=== PATIENT | female | born 1960 | race Caucasian/White ===

== ENCOUNTER 2019-01-08 18:02 | Observation (INO) ==
[2019-01-08] MEDS ORDERED: ZOFRAN INJ 4 MG VIAL IVP PRN (18:24)
[2019-01-08] MEDS ORDERED: PHENERGAN INJ 25 MG IM PRN (18:30)
[2019-01-08] MEDS ORDERED: NS 1000 ML 1,000 ML IV SCH (19:00)
[2019-01-08 20:04] LABS: BASOPHILS # (AUTO) 0.1 X10^3/uL (0.0-0.1); BASOPHILS % (AUTO) 0.8 % (0.2-1.0); EOSINOPHILS # (AUTO) 0.2 x10^3/uL (0.0-0.2); EOSINOPHILS % (AUTO) 1.6 % (0.9-2.9); HEMATOCRIT 44.6 % (36.0-47.0); LYMPHOCYTES # (AUTO) 3.6 X10^3/uL (1.3-2.9); MEAN CORPUSCULAR HEMOGLOBIN 31.1 pg (27.0-34.0); MEAN CORPUSCULAR HGB CONC 33.8 g/dL (33.0-35.0); MEAN CORPUSCULAR VOLUME 92.2 fL (80.0-100.0); MEAN PLATELET VOLUME 7.9 fL (7.4-11.0); MONOCYTES # (AUTO) 0.7 x10^3/uL (0.3-0.8); MONOCYTES % (AUTO) 6.1 % (0.0-13.0); NEUTROPHILS # (AUTO) 6.7 x10^3/uL (2.2-4.8); NEUTROPHILS % (AUTO) 59.5 % (42.0-75.0); PLATELET COUNT 294 X10^3/uL (150.0-450.0); RED BLOOD COUNT 4.83 X10^6/uL (3.5-5.4); RED CELL DISTRIBUTION WIDTH 13.4 % (11.6-16.5); WHITE BLOOD COUNT 11.3 X10^3/uL (3.6-10.0)
[2019-01-08] MEDS ORDERED: NS 1000 ML 1,000 ML IV ONE (20:11)
[2019-01-08] MEDS ORDERED: DILAUDID INJ IVP PRN (20:11)
[2019-01-08 20:14] LABS: ALANINE AMINOTRANSFERASE 34 Units/L (12-78); ALBUMIN 3.7 g/dL (3.4-5.0); ALKALINE PHOSPHATASE 87 Units/L (46-116); ASPARTATE AMINO TRANSFERASE 20 Units/L (15-37); BLOOD UREA NITROGEN 19 mg/dL (7-18); CALCIUM 9.2 mg/dL (8.5-10.1); CARBON DIOXIDE 30.2 mmol/L (21-32); CHLORIDE 105 mmol/L (98-107); CREATININE 0.87 mg/dL (0.55-1.02); SODIUM 144 mmol/L (136-145); TOTAL PROTEIN 7.5 g/dL (6.4-8.2); eGFR NON BLACK RACES > 60 (>60)
[2019-01-08] MEDS ORDERED: NS 1000 ML 1,000 ML ONE (20:14)
[2019-01-08 20:36] VITALS: BMI 25.2
[2019-01-08] MEDS: PROTONIX INJ 40 MG VIAL IVP SCH (21:18)
[2019-01-08 21:37] LABS: BILIRUBIN,URINE NEGATIVE (NEGATIVE); BLOOD/HEMOGLOBIN,URINE NEGATIVE (NEGATIVE); GLUCOSE, URINE NEGATIVE (NEGATIVE); KETONES,URINE NEGATIVE (NEGATIVE); LEUKOCYTE ESTERASE ,URINE NEGATIVE (NEGATIVE); NITRITES,URINE NEGATIVE (NEGATIVE); PROTEIN,URINE NEGATIVE (NEGATIVE); UROBILINOGEN,URINE NORMAL (NORMAL)
[2019-01-08 21:44] LABS: APPEARANCE,URINE CLEAR (CLEAR); COLOR,URINE YELLOW (YELLOW)
--- NOTE | 2019-01-08 21:54 | RAD ---
HISTORY: Abdominal pain without chest complaints Study: Single view of the chest. Comparison: None. Findings: The cardiomediastinal silhouette is normal. No focal consolidations, pleural effusions or pneumothorax. Osseous structures demonstrate no acute abnormality. IMPRESSION: 1. No acute cardiopulmonary process. Reported By:
--- NOTE | 2019-01-09 08:37 | DR.H&P ---
H&P - History & Physical for Day of: H&P Date: 01/08/19 - Chief Complaint Chief Complaint: "gallbladder attack" right upper abdominal pain, n/v/d. - History of Present Illness History of Present Illness: Pt is a 58 yr old wf that was a direct admit from Dr. Chanel's office with biliary dyskenesia. Pt has had persistent RUQ pain with waves of nausea and vomiting, food intolerance. Pt c/o excessive gas and bloating. Pt has had an outpt hida scan with abnormal gallbaldder EF, 9% - Past Medical History Past Medical History: GERD, Hypertension - Past Surgical History Surgical History: - Social History Does patient currently use any type of tobacco product: No Have you used tobacco products in the last 12 months: No Type of Tobacco Use: None Alcohol Use: None Drug Use: None - Medications Home Medications: No Known Drug Allergies Allergy (Verified 01/08/19 20:14) CONTINUE taking the following medications NK 01/09/19 [History] - Review of Systems Constitutional: Malaise Eyes: No Symptoms Reported ENT: No Symptoms Reported Respiratory: No Symptoms Reported Cardiovascular: No Symptoms Reported Gastrointestinal: Nausea, Vomiting, Abdominal Pain, Diarrhea Genitourinary: No Symptoms Reported Musculoskeletal: No Symptoms Reported Skin: No Symptoms Reported Neurological: No Symptoms Reported - Physical Exam Vital Signs: Temperature 98.2 F Pulse Rate [Left Radial] 86 Respiratory Rate 18 Blood Pressure [Left Arm] 160/80 O2 Sat by Pulse Oximetry 96 Oriented: Normal Eyes: Normal Ear: Normal Nose: Normal Throat: Normal Respiratory: Clear Throughout Cardiovascular: Normal, Irregular Auscultation: Bowel Sounds: Normal Palpation: Normal Tenderness: RUQ, Epigastric Skin: Normal Musculoskeletal: Normal Psychiatric: Normal Mood Description: Calm Speech Pattern: Clear, Appropriate - Assessment/Plan (1) Biliary dyskinesia Status: Acute Plan: ADMIT, IV HYDRATION, PAIN AND NAUSEA CONTROL. NPO AFTER MIDNIGHT, CONSULT DR LI FOR LAP ROB. VERIFY HOME MEDICATIONS, AM LABS (2) Right upper quadrant abdominal pain Status: Acute - Allergies Allergies/Adverse Reactions: Allergies Allergy/AdvReac Type Severity Reaction Status Date / Time No Known Drug Allergies Allergy Verified 01/08/19 20:14
[2019-01-09] MEDS: PROTONIX INJ 40 MG VIAL IVP SCH (08:44)
[2019-01-09] MEDS ORDERED: NS IRRIGATION 3000 ML ONE (08:54)
[2019-01-09] MEDS ORDERED: NEOSTIGMINE INJ ONE (09:09)
[2019-01-09] MEDS ORDERED: ZOFRAN INJ 4 MG VIAL ONE (09:09)
[2019-01-09] MEDS ORDERED: ROBINUL ONE (09:09)
[2019-01-09] MEDS ORDERED: SUPRANE ONE (09:09)
[2019-01-09] MEDS ORDERED: NORCURON INJ 10 MG VIAL ONE (09:09)
[2019-01-09] MEDS ORDERED: XYLOCAINE 2 % (PLAIN) ONE (09:09)
[2019-01-09] MEDS ORDERED: DIPRIVAN VIAL ONE (09:09)
[2019-01-09] MEDS ORDERED: VERSED ONE (09:09)
[2019-01-09] MEDS ORDERED: QUELICIN (OR ANECTINE) ONE (09:09)
[2019-01-09] MEDS ORDERED: LTA KIT LIDOCAINE 4% ONE (09:09)
[2019-01-09] MEDS ORDERED: NORMODYNE INJ 100 MG VIAL ONE (09:09)
[2019-01-09] MEDS ORDERED: TORADOL 30 MG VIAL ONE (09:09)
[2019-01-09] MEDS ORDERED: LR 1000 ML IV 1,000 ML IV ONE (09:58)
[2019-01-09] MEDS ORDERED: NS 100 ML IV 100 ML IV ONE (09:59)
[2019-01-09] MEDS ORDERED: ANCEF VIAL 1 GRAM ONE (09:59)
[2019-01-09] MEDS ORDERED: FENTANYL INJ 250 mcg ONE (10:51)
[2019-01-09] MEDS ORDERED: DECADRON INJ ONE (11:25)
[2019-01-09] MEDS ORDERED: FENTANYL INJ 100 mcg ONE (11:36)
[2019-01-09] MEDS ORDERED: BACTROBAN TOPICAL OINT ONE (11:58)
[2019-01-09] MEDS ORDERED: PHENERGAN INJ 25 MG IM PRN (12:00)
[2019-01-09] MEDS ORDERED: DILAUDID INJ IVP PRN (12:00)
[2019-01-09] MEDS ORDERED: ZOFRAN INJ 4 MG VIAL IVP PRN (12:00)
[2019-01-09] MEDS ORDERED: BENADRYL INJ 50 MG VIAL IVP PRN (12:00)
[2019-01-09] MEDS ORDERED: REGLAN INJ 10 MG VIAL IVP PRN (12:00)
--- NOTE | 2019-01-09 12:43 | OR.IMMED ---
Immediate Post-Op Note - Immediate Post-Op Note Pre-Op Diagnosis: cholecystitis Post-Op Diagnosis: distended GB , mild hepatomegaly . Procedure: diagnostic lap and lap julianna . Surgeon/Rating Specialist: Anu. Specimens Removed: GB with contents. Drains: NONE Complications: no. Condition: Stable
[2019-01-09 15:47] VITALS: BP 170/80
== END 2019-01-09 16:00 | disposition home or self-care (01) ==
LOC: MED/SURG
PROVIDERS: ADMIT Internal Medicine; ATTEND Internal Medicine
DX: K21.9 Gastro-esophageal reflux disease without esophagitis; R16.0 Hepatomegaly, not elsewhere classified; K82.8 Other specified diseases of gallbladder; R11.2 Nausea with vomiting, unspecified; I10 Essential (primary) hypertension; K81.1 Chronic cholecystitis; R10.13 Epigastric pain; R10.11 Right upper quadrant pain
CPT/HCPCS: 36415; 71010; 71045; 80053; 81003; 85025; 93005; 96367; A4216; A4222; C9113; G0378; J0330; J0690; J1100; J1885; J2250; J2405; J2704; J2710; J3010; J3490; J7030; J7050; J7120